=== PATIENT | male | born 2005 | race Caucasian/White ===

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

== ENCOUNTER 2025-03-14 08:04 | Emergency (ER) | payer BC, SELFPAY ==
[2025-03-14 08:13] VITALS: BP 120/73
[2025-03-14 08:19] LABS: Glucose - Point of Care 146 mg/dl (70-99)
[2025-03-14 08:28] VITALS: BMI 18.9
[2025-03-14 08:29] LABS: Hematocrit 49.7 % (39.0-52.0); Hemoglobin 17.2 g/dL (13.0-18.0); Mean Corp Hgb Conc. 34.6 g/dL (33.0-37.0); Mean Corpuscular Volume 88.8 fL (80.0-94.0); Nucleated Red Blood Cells % 0 % (-); Platelet Count 301 10^3/uL (130-400); Red Cell Dist. Width 12.2 % (11.5-14.5)
--- NOTE | 2025-03-14 08:37 | ED.GENMED ---
History of Present Illness
General
Chief Complaint: Change in Mental Status
Source: patient and family (mother)
Exam Limitations: none
Time Seen by Provider: 03/14/25 08:37
Nursing documentation reviewed up to this point in time: agreed with
History of Present Illness
History of Present Illness:
Note:
CHIEF COMPLAINT(S)
Altered mental status and confusion.
HISTORY OF PRESENT ILLNESS
The patient is a 19-year-old male with a history of spontaneous brain bleed being followed up at [facility]. The patient reports an unusual sense of readiness for work this morning, followed by a brief episode of confusion while performing
normal activities. During the morning, he experienced difficulty recalling certain routines and was disoriented. Later, during a conversation, he appeared confused, failed to recognize the current month, and exhibited altered behavior that is newly
developed and not typical for him. According to family accounts, this is not the first occurrence; similar symptoms were noted back in early December. The patient had been scheduled for an MRI, which was delayed due to complications related to a recent
tattoo. It was noted that he had multiple angiograms done in the past but has no known medication or treatment from those findings. During a car ride to the facility today, he was reportedly shaking and disoriented, which raised concerns. The
patients cognitive abilities and orientation to time appear impaired.
EXTERNAL RECORDS REVIEWED
According to previous records from [place], the patient has a history of spontaneous brain bleed and was under consideration for an MRI, which was postponed due to a recently acquired tattoo. The patient has undergone several angiograms in the
past.
PHYSICAL EXAM
- General: The patient is alert and oriented to person and place but not to the current month. Exhibits confusion.
- Eyes: Pupils are equal, round, and react to light.
- Neurologic: Extraocular muscles are intact. Cranial nerves II through XII are intact. The patient is unable to accurately state the current month.
- Cardiovascular: Regular rate and rhythm with normal heart sounds noted and no murmurs detected.
- Pulmonary: Lung infante are clear to auscultation bilaterally.
PLAN
1. Continue monitoring neurological status closely.
2. Review the need and timing for the postponed MRI considering the patients condition and recent tattoo-related complications.
3. Consider further diagnostic workup, including possible imaging like repeat angiography or consultation with neurology.
DIFFERENTIAL DIAGNOSIS
The Differential Diagnosis includes, in no particular order and is not limited to:
1. Recurrence or progression of spontaneous brain hemorrhage.
2. Postictal state following a seizure.
3. Infection leading to encephalopathy.
4. Toxic or metabolic encephalopathy.
5. Transient ischemic attack.
6. Medication side effects or drug toxicity.
7. Acute stress response or psychological disorder.
8. Migraine-associated confusion.
9. Tumor or other structural brain pathology.
10. Autoimmune condition affecting the central nervous system.
CARE-UPDATE
03/14/25 - 10:54
Reviewed recent imaging; head CT normal with no acute findings. Consulted with Dr. Velarde in Neurology, who evaluated the patient and recommends restarting KEPPRA. Patient to follow-up with Neurology for further management. Consent discussed.
Disposition:
SUMMARY OF ENCOUNTER
The patient, a 19-year-old male with a history of spontaneous brain bleed, presented to the emergency department with symptoms of altered mental status and confusion. The patient had experienced an episode of confusion earlier in the morning while
performing normal activities, resulting in disorientation and difficulty with recall. This included shaking and failure to recognize the current month, which prompted concerns for a neurological event such as a seizure.
DISPOSITION
The patient is recommended for follow-up with both current and local neurologists to manage his ongoing neurological concerns.
ASSESSMENT
The patient is suspected to have experienced a seizure, given the history of confusion, disorientation, and shaking. This episode is consistent with a possible postictal state.
MANAGEMENT OF THE PATIENTS CARE WAS DISCUSSED WITH
A local neurologist will be involved in the patients ongoing management to ensure comprehensive neurological care.
PLAN
The plan includes close monitoring of the patients neurological status, reassessment by neurologists, and consideration of further diagnostic imaging or angiograms to evaluate for potential underlying causes of the alteration in mental status.
MEDICAL DECISION MAKING
- Number and Complexity of Problems Addressed: Chronic conditions affecting care include a history of spontaneous brain bleed. The differential diagnosis includes recurrence or progression of spontaneous brain hemorrhage, postictal state following a
seizure, transient ischemic attack, and other neurological disorders.
- Data:
Category 2: External records reviewed from previous hospital encounters that confirm historical spontaneous brain hemorrhage and the need for ongoing neurological follow-up.
Category 3: Management discussions with local neurologists to coordinate follow-up and ongoing care plans.
- Risk: Prescription medication management and decisions regarding neurological follow-up have been considered, with emphasis on ensuring the patients stability and safety upon discharge.
DIAGNOSIS
1. Seizure, postictal state - ICD-10 R56.9
2. Altered mental status - ICD-10 R41.82
Past History
Past History
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
ED Past Surgical History: None
Social History
Tobacco: Non-smoker
Alcohol: None
Phy Exam
Physical Exam
Physical Exam:
.
Course
Orders/Labs/Results
Orders:
Orders
03/14/25 08:17
CT Head W/o Iv Contrast Urgent
Comment:
Reason For Exam: change in mental status
03/14/25 08:18
Electrocardiogram (*1) Urgent
Reason for Study: Other
Other Reason for Exam: change in mental status
03/14/25 08:19
EKG- Treatment ONCE
03/14/25 08:22
CMP [Comprehensive Metabolic Panel] Urgent
Complete Blood Count/With Diff Urgent
03/14/25 10:31
Levetiracetam Injectable [Keppra] 1,000 mg IV NOW STA
03/14/25 10:41
EKG [Electrocardiogram (*1)] Urgent
Reason for Study: Chest Pain
EKG- Treatment ONCE
Abnormal Lab Results
03/14/25 03/14/25
08:17 08:22
Lymphocytes % 19.5 L %
(20.5-51.1)
Glucose 128 H mg/dl
(70-99)
Calcium 10.4 H mg/dl
(8.4-10.2)
Total Bilirubin 2.5 H mg/dl
(0.2-1.3)
Total Protein 8.5 H g/dl
(6.3-8.2)
Albumin 5.6 H g/dl
(3.5-5.0)
POC Glucose 146 H mg/dl
(70-99)
03/14/25 08:22
03/14/25 08:22
Vital Signs
Initial and Last Documented VS:
Initial Vital Signs
Temp Pulse Resp BP Pulse Ox
98.1 F 77 16 120/73 99
03/14/25 08:13 03/14/25 08:13 03/14/25 08:13 03/14/25 08:13 03/14/25 08:13
Last Documented Vital Signs
Temp Pulse Resp BP Pulse Ox
98.1 F 77 16 110/75 98
03/14/25 08:13 03/14/25 08:13 03/14/25 08:13 03/14/25 10:00 03/14/25 10:30
*Pulse Oximetry
SaO2: 99
Oxygen Mode of Delivery: Room air
Patient hypoxic: no
*EKG
Interpreted by ED Provider?: Yes
EKG Intrepretation Date: 03/14/25
EKG Intrepretation Time: 10:47
Interpretation: abnormal
Comparison EKG: no changes
Heart Rate: 59
Rate: bradycardiac
Rhythm: sinus and sinus arrhythmia
Watkins: normal axis
Interval: normal interval
QRS Pattern: normal QRS
Ischemia: no ischemia
*Critical Care Note
Total Time (30-74mins, 75-104mins- exclusive of procedures): Not Applicable
Patient Management
Social determinants of health affecting care: Living situation and Strong social support
Discussion with other providers: Construction Administrator (neurology Dr. [place])
Escalation/DeEscalation of care consider admission/obs:
admit not indicated
Update Note
Update Note:
pt c/o chest pain, normal ekg, doubt acs or PE
ED Attending Note
-
Portions of this chart may have been created with voice recognition software.� Occasional wrong word or��sound alike� substitutions may have occurred due to the inherent limitations of voice recognition software.
Discharge Plan
Departure
Patient Disposition: Home (Routine Discharge)
Date of Disposition: 03/14/25
Time of Disposition: 11:03
Patient with high blood pressure during this ER visit?: No
Condition: Good
Discharge Problem:
Seizure
Instructions: Seizures in adults - ED discharge instructions
Prescriptions:
New
levetiracetam [Keppra] 500 mg tablet
500 mg PO BID Qty: 60 0RF
No Action
ibuprofen [Advil Migraine] 200 mg Capsule
200 mg PO ONCE
methylprednisolone [Medrol (Sherman)] 4 mg Tablets,Dose Pack
4 mg PO PER PKG DIR
Referrals:
Kimberlyn Wilkins CRNP [Specified Professional Personl, Neurology] - Call in 1-3 days for appt
Lalitha Bryant MD [Family Provider, Pediatrics]
Interventions
Interventions:
*Risk Screen - Suicide Last Done: 03/14/25 08:13
*Neglect/Abuse Screening Last Done: 03/14/25 08:13
Discharge Date and Time
Print Language: IRAQI
[2025-03-14 08:59] LABS: ALT (SGPT) 19 U/L (0-50); AST (SGOT) 34 U/L (17-59); Albumin 5.6 g/dl (3.5-5.0); Alkaline Phosphatase 62 U/L (38-126); Blood Urea Nitrogen 13 mg/dl (9-20); Calcium 10.4 mg/dl (8.4-10.2); Carbon Dioxide 23 mmol/L (22-30); Chloride 104 mmol/L (98-107); Estimated Creatinine Clearance 101 ml/min; Glucose 128 mg/dl (70-99); Potassium 5.1 mmol/L (3.5-5.1); Sodium 141 mmol/L (135-145); Total Protein 8.5 g/dl (6.3-8.2); eGFR > 60.00
[2025-03-14 10:00] VITALS: BP 110/75
[2025-03-14] MEDS: KEPPRA 1000 MG IV (10:51)
--- NOTE | 2025-03-14 12:38 | CON.NEURO ---
Neuro Assessment/Plan
Assessment
seizure after prescribed discontinuation of Keppra. In this situation I would have expected him to seize ~1/3 of the time which unfortunately happened
Needed ED eval for prolonged post ictal >1 hr
Restart Keppra 500 BID and 99%+ he will be seizure free again; he can discuss in a year if he wants to try coming off Keppra again
ok to drive as he had been sz free >6 months and this sz the result of prescribed removal of med which has been restarted, DL-13 sent to [facility]
return to ED if sz >5 mins, increase in sz frequency, post ictal >1 hr
wants local provider refer to our office Kimberlyn Wilkins
above d/w patient and mom
Consultation
Order
Date of Consultation: 03/14/25
Requesting Provider: Ana
Reason for Consult: seizure
Subjective/Objective
Subjective Data
Date of Service: March 14, 2025
from ED notes:
The patient is a 19-year-old male with a history of spontaneous brain bleed being followed up at [facility]. The patient reports an unusual sense of readiness for work this morning, followed by a brief episode of confusion while performing
normal activities. During the morning, he experienced difficulty recalling certain routines and was disoriented. Later, during a conversation, he appeared confused, failed to recognize the current month, and exhibited altered behavior that is newly
developed and not typical for him. According to family accounts, this is not the first occurrence; similar symptoms were noted back in early December. The patient had been scheduled for an MRI, which was delayed due to complications related to a recent
tattoo. It was noted that he had multiple angiograms done in the past but has no known medication or treatment from those findings. During a car ride to the facility today, he was reportedly shaking and disoriented, which raised concerns. The
patients cognitive abilities and orientation to time appear impaired.
spoke with patient and mom. h/o RCVS, bleed, sz. was seizure free for 1 year, came off Keppra, had sz today. prolonged post ictal >1 hr occasional simple partial sz 'only an aura' left face numbness, or left foot weakness lasting seconds.
Objective Data
Vital Signs
Temp Pulse Resp BP Pulse Ox
36.7 C 77 16 110/75 97
03/14/25 08:13 03/14/25 08:13 03/14/25 08:13 03/14/25 10:00 03/14/25 11:00
Lab Results
03/14/25 08:22
03/14/25 08:22
Sodium 141 mmol/L (135-145) 03/14/25 08:22
Potassium 5.1 mmol/L (3.5-5.1) 03/14/25 08:22
BUN 13 mg/dl (9-20) 03/14/25 08:22
Glucose 128 mg/dl (70-99) H 03/14/25 08:22
Calcium 10.4 mg/dl (8.4-10.2) H 03/14/25 08:22
Patient Allergies
acetaminophen (From Percocet) Allergy (Unknown, Verified 10/11/23 12:51)
Hives
oxycodone (From Percocet) Allergy (Unknown, Verified 10/11/23 12:51)
Hives
Physical Exam
-
AAOx3
Medications
-
Home Medications
�Medication �Instructions �Recorded
ibuprofen 200 mg capsule (Advil 200 mg PO ONCE 07/16/23
Migraine)
methylprednisolone 4 mg tablets in 4 mg PO PER PKG DIR 07/16/23
a dose pack (Medrol (Sherman))
levetiracetam 500 mg tablet 500 mg PO BID #60 tabs 03/14/25
(Keppra)
== END 2025-03-14 11:30 | disposition home or self-care (01) ==
LOC: EMR 08:04
PROVIDERS: EMERGENCY PHYSICIAN Emergency Medicine; FAMILY PHYSICIAN Pediatrics
DX: R41.82 Altered mental status, unspecified (principal); R56.9 Unspecified convulsions; Z88.6 Allergy status to analgesic agent; Z88.5 Allergy status to narcotic agent; Z86.73 Personal history of transient ischemic attack (TIA), and cerebral infarction without residual deficits
CPT/HCPCS: 99284; 96374; 70450; 80053; 82962; 85025; 93005

== ENCOUNTER → 2025-08-01 10:17 | Outpatient (REF) | payer BC, SELFPAY | LOC: PAVMRI 10:17 | PROVIDERS: ATTENDING PHYSICIAN Neurological Surgery; FAMILY PHYSICIAN Physician Assistant | DX: I61.1 Nontraumatic intracerebral hemorrhage in hemisphere, cortical (principal) | CPT/HCPCS: 70544; 70551 ==